=== PATIENT | male | born 1955 | race Caucasian/White ===

== ENCOUNTER 2018-09-06 21:23 | Inpatient (IN) | payer MEDICARE, BC ==
[~2018-09-06] VITALS: Ht 177.8 cm; Wt 65.8 kg
[2018-09-06] MEDS ORDERED: METH10TA2 PO (22:37)
[2018-09-06] MEDS ORDERED: IPRA0.2S48 IH (22:37)
[2018-09-06] MEDS ORDERED: DOCU50CA13 PO (22:37)
[2018-09-06] MEDS ORDERED: FINA5TAB3 PO (22:37)
[2018-09-06] MEDS ORDERED: FLUT1DIS29 IH (22:37)
[2018-09-06] MEDS ORDERED: DICL100G16 TP (22:37)
[2018-09-06] MEDS ORDERED: ALBU8HFA4 (22:37)
[2018-09-06] MEDS ORDERED: MULT1TAB73 PO (22:37)
[2018-09-06] MEDS ORDERED: ATOR80TA PO (22:37)
[2018-09-06] MEDS ORDERED: TAMS-3 PO (22:37)
[2018-09-06] MEDS ORDERED: AMIT50TA3 PO (22:37)
[2018-09-06] MEDS ORDERED: ASPI-605 PO (22:37)
[2018-09-06] MEDS ORDERED: ATEN50TA PO (22:37)
[2018-09-06] MEDS ORDERED: LANS30CA54 PO (22:37)
[2018-09-06] MEDS ORDERED: ZOLPIDEM 5 MG TABLET PO PRN (23:00)
[2018-09-06] MEDS ORDERED: ACETAMINOPHEN 325 MG TABLET PO PRN (23:00)
[2018-09-06] MEDS ORDERED: LORAZEPAM 0.5 MG TABLET PO PRN (23:00)
[2018-09-06] MEDS ORDERED: MAGNESIUM HYDROXIDE 30 ML LIQUID UDC PO PRN (23:00)
[2018-09-06] MEDS ORDERED: MAG HYDROX/AL HYDROX/SIMETH 30 ML LIQUID UDC PO PRN (23:00)
[2018-09-07 00:14] VITALS: BP 113/48
[2018-09-07] MEDS ORDERED: ACETAMINOPHEN 325 MG TABLET PO PRN ×2 (01:45→02:45)
[2018-09-07 07:30] VITALS: BP 110/49
[2018-09-07] MEDS ORDERED: Medication Not On Formulary EA (Multivitamins (Multivitamin) 1 EACH) PO SCH (09:00)
[2018-09-07] MEDS ORDERED: FLUTICASONE/SALMETEROL 500/50 EACH DISK.W.DEV IH SCH (09:00)
[2018-09-07] MEDS ORDERED: DOCUSATE SODIUM 50 MG PO PRN (09:00)
[2018-09-07] MEDS ORDERED: Medication Not On Formulary EA (Lansoprazole (Prevacid) 30 MG) PO SCH (09:00)
[2018-09-07] MEDS: FINASTERIDE 5 MG TABLET PO SCH (09:55)
[2018-09-07] MEDS: TAMSULOSIN HCL 0.4 MG CAP.SR.24H PO SCH ×2 (09:55→16:42)
[2018-09-07] MEDS: ASPIRIN EC 81 MG TABLET.DR PO SCH (09:55)
[2018-09-07] MEDS: ATENOLOL 50 MG TABLET PO SCH (12:01)
[2018-09-07] MEDS: METHADONE HCL 10 MG TABLET PO SCH ×2 (13:07→16:42)
[2018-09-07] MEDS: IPRATROPIUM BROMIDE 0.5 MG/2.5 ML NEBU IH SCH (15:30)
[2018-09-07 16:13] VITALS: BP 122/51
[2018-09-07 19:30] VITALS: BP 108/73
[2018-09-07] MEDS: DOCUSATE SODIUM 100 MG CAPSULE PO SCH (20:15)
[2018-09-07] MEDS: ATORVASTATIN 40 MG TABLET PO SCH (20:15)
[2018-09-07] MEDS: AMITRIPTYLINE HCL 50 MG TABLET PO SCH (20:15)
[2018-09-07] MEDS ORDERED: Medication Not On Formulary EA (Atorvastatin Calcium (Lipitor) 80 MG) PO SCH (21:00)
[2018-09-08] MEDS: PANTOPRAZOLE SODIUM 40 MG TABLET.DR PO SCH (06:09)
[2018-09-08 07:17] LABS: EOSINOPHILS # (AUTO) 0.2 K/uL (0.0-0.7); EOSINOPHILS % (AUTO) 3.4 % (0.0-7.0); HEMATOCRIT 35.3 % (36.7-47.1); LYMPHOCYTES # (AUTO) 0.7 K/uL (20.0-40.0); LYMPHOCYTES % (AUTO) 14.2 % (20.5-51.5); MEAN CORPUSCULAR HEMOGLOBIN 31.6 uug (23.8-33.4); MEAN CORPUSCULAR HGB CONC 34 g/dL (32.5-36.3); MEAN CORPUSCULAR VOLUME 92.5 fL (73.0-96.2); MONOCYTES # (AUTO) 0.4 K/uL (2.0-10.0); MONOCYTES % (AUTO) 8.8 % (0.0-11.0); NEUTROPHILS # (AUTO) 3.7 K/uL (1.8-8.9); NEUTROPHILS % (AUTO) 72.6 % (38.5-71.5); PLATELET COUNT (AUTO) 283 K/uL (152-348); RED BLOOD CELL COUNT(AUTO) 3.82 MIL/uL (4.06-5.63); WHITE BLOOD COUNT (AUTO) 5.1 K/uL (3.6-10.2)
[2018-09-08 07:30] VITALS: BP 116/78
[2018-09-08 07:36] LABS: CREATININE 0.8 mg/dL (0.6-1.3); POTASSIUM 4.2 mmol/L (3.5-5.1)
[2018-09-08 07:42] LABS: BILIRUBIN,TOTAL 0.5 mg/dL (0.2-1.0); MAGNESIUM 1.6 mg/dL (1.8-2.4); PHOSPHOROUS 3.4 mg/dL (2.5-4.9); TOTAL PROTEIN, SERUM 7.1 g/dL (6.4-8.2)
[2018-09-08 07:53] LABS: THYROID STIMULATING HORMONE 1.725 mIU/mL (0.358-3.740)
[2018-09-08] MEDS: IPRATROPIUM BROMIDE 0.5 MG/2.5 ML NEBU IH SCH ×4 (08:00→23:01)
[2018-09-08] MEDS: FINASTERIDE 5 MG TABLET PO SCH (08:29)
[2018-09-08] MEDS: ATENOLOL 50 MG TABLET PO SCH (08:29)
[2018-09-08] MEDS: DOCUSATE SODIUM 100 MG CAPSULE PO SCH ×2 (08:30→20:33)
[2018-09-08] MEDS: MULTIVITAMINS,THERAPEUTIC TABLET PO SCH (08:30)
[2018-09-08] MEDS: ESCITALOPRAM OXALATE 10 MG TABLET PO SCH (08:30)
[2018-09-08] MEDS: TAMSULOSIN HCL 0.4 MG CAP.SR.24H PO SCH ×2 (08:30→17:21)
[2018-09-08] MEDS: METHADONE HCL 10 MG TABLET PO SCH ×3 (08:30→17:21)
[2018-09-08] MEDS: ASPIRIN EC 81 MG TABLET.DR PO SCH (08:31)
[2018-09-08] MEDS: FLUTICASONE/VILANTEROL 1 EACH BLST.W.DEV INH SCH (08:32)
[2018-09-08] MEDS ORDERED: MAGNESIUM OXIDE 400 MG TABLET PO ONE ×2 (12:00→15:00)
[2018-09-08 12:50] LABS: *BILIRUBIN,URIN NEGATIVE (NEGATIVE); *BLOOD, URINE NEGATIVE (NEGATIVE); *CLARITY,URINE CLEAR (CLEAR); *COLOR,URINE DARK YELLOW (YELLOW); *KETONES,URINE NEGATIVE (NEGATIVE); *PROTEIN,URINE NEGATIVE (NEGATIVE); *UROBILINOGEN,URINE 0.2 E.U./dl (NORMAL); LEUKOCYTE ESTERASE ,URINE NEGATIVE (NEGATIVE); NITRITE, URINE NEGATIVE (NEGATIVE); PH,URINE 5.5 (5.0-8.0); UGLUCOSE NEGATIVE (NEGATIVE)
[2018-09-08] MEDS: MUPIROCIN 2% OINT 22 GM TUBE NS SCH (17:22)
[2018-09-08 17:36] VITALS: BP 113/60
[2018-09-08] MEDS: ATORVASTATIN 40 MG TABLET PO SCH (20:33)
[2018-09-08] MEDS: AMITRIPTYLINE HCL 50 MG TABLET PO SCH (20:34)
[2018-09-09] MEDS: PANTOPRAZOLE SODIUM 40 MG TABLET.DR PO SCH (06:15)
[2018-09-09] MEDS: IPRATROPIUM BROMIDE 0.5 MG/2.5 ML NEBU IH SCH ×3 (07:19→22:30)
[2018-09-09 07:30] VITALS: BP 119/50
[2018-09-09] MEDS: DOCUSATE SODIUM 100 MG CAPSULE PO SCH ×2 (08:16→22:05)
[2018-09-09] MEDS: ASPIRIN EC 81 MG TABLET.DR PO SCH (08:16)
[2018-09-09] MEDS: MULTIVITAMINS,THERAPEUTIC TABLET PO SCH (08:16)
[2018-09-09] MEDS: TAMSULOSIN HCL 0.4 MG CAP.SR.24H PO SCH ×2 (08:16→16:22)
[2018-09-09] MEDS: METHADONE HCL 10 MG TABLET PO SCH ×3 (08:17→16:22)
[2018-09-09] MEDS: FINASTERIDE 5 MG TABLET PO SCH (08:17)
[2018-09-09] MEDS: ESCITALOPRAM OXALATE 10 MG TABLET PO SCH (08:17)
[2018-09-09] MEDS: MUPIROCIN 2% OINT 22 GM TUBE NS SCH ×2 (08:18→22:05)
[2018-09-09] MEDS: ATENOLOL 50 MG TABLET PO SCH (08:18)
[2018-09-09] MEDS: FLUTICASONE/VILANTEROL 1 EACH BLST.W.DEV INH SCH (08:19)
[2018-09-09 16:00] VITALS: BP 107/70
[2018-09-09 20:46] VITALS: BP 129/71
[2018-09-09] MEDS: AMITRIPTYLINE HCL 50 MG TABLET PO SCH (22:05)
[2018-09-09] MEDS: ATORVASTATIN 40 MG TABLET PO SCH (22:05)
[2018-09-10] MEDS: IPRATROPIUM BROMIDE 0.5 MG/2.5 ML NEBU IH SCH ×3 (07:05→23:07)
[2018-09-10 07:30] VITALS: BP 134/77
[2018-09-10] MEDS: PANTOPRAZOLE SODIUM 40 MG TABLET.DR PO SCH (08:07)
[2018-09-10] MEDS: FLUTICASONE/VILANTEROL 1 EACH BLST.W.DEV INH SCH (08:08)
[2018-09-10] MEDS: MULTIVITAMINS,THERAPEUTIC TABLET PO SCH (08:08)
[2018-09-10] MEDS: FINASTERIDE 5 MG TABLET PO SCH (08:09)
[2018-09-10] MEDS: DOCUSATE SODIUM 100 MG CAPSULE PO SCH ×2 (08:09→20:57)
[2018-09-10] MEDS: ASPIRIN EC 81 MG TABLET.DR PO SCH (08:09)
[2018-09-10] MEDS: METHADONE HCL 10 MG TABLET PO SCH ×3 (08:09→16:53)
[2018-09-10] MEDS: ESCITALOPRAM OXALATE 10 MG TABLET PO SCH (08:09)
[2018-09-10] MEDS: TAMSULOSIN HCL 0.4 MG CAP.SR.24H PO SCH ×2 (08:09→16:53)
[2018-09-10] MEDS: MUPIROCIN 2% OINT 22 GM TUBE NS SCH ×2 (08:10→20:57)
[2018-09-10] MEDS: ATENOLOL 50 MG TABLET PO SCH (15:00)
[2018-09-10 16:00] VITALS: BP 122/62
[2018-09-10 20:51] VITALS: BP 124/67
[2018-09-10] MEDS: AMITRIPTYLINE HCL 50 MG TABLET PO SCH (20:57)
[2018-09-10] MEDS: ATORVASTATIN 40 MG TABLET PO SCH (20:58)
[2018-09-11] MEDS: IPRATROPIUM BROMIDE 0.5 MG/2.5 ML NEBU IH SCH ×3 (07:07→23:18)
[2018-09-11 07:30] VITALS: BP 129/53
[2018-09-11] MEDS: PANTOPRAZOLE SODIUM 40 MG TABLET.DR PO SCH (07:45)
[2018-09-11] MEDS: ASPIRIN EC 81 MG TABLET.DR PO SCH (08:19)
[2018-09-11] MEDS: FINASTERIDE 5 MG TABLET PO SCH (08:19)
[2018-09-11] MEDS: ESCITALOPRAM OXALATE 10 MG TABLET PO SCH (08:19)
[2018-09-11] MEDS: DOCUSATE SODIUM 100 MG CAPSULE PO SCH ×2 (08:19→20:29)
[2018-09-11] MEDS: MUPIROCIN 2% OINT 22 GM TUBE NS SCH ×2 (08:22→20:29)
[2018-09-11] MEDS: FLUTICASONE/VILANTEROL 1 EACH BLST.W.DEV INH SCH (08:22)
[2018-09-11] MEDS: METHADONE HCL 10 MG TABLET PO SCH ×3 (08:38→16:21)
[2018-09-11] MEDS: TAMSULOSIN HCL 0.4 MG CAP.SR.24H PO SCH ×2 (08:43→16:21)
[2018-09-11] MEDS: MULTIVITAMINS,THERAPEUTIC TABLET PO SCH (08:43)
[2018-09-11] MEDS: ATENOLOL 50 MG TABLET PO SCH (09:19)
[2018-09-11] MEDS: PSYLLIUM SEED PACKET PO SCH (12:12)
[2018-09-11 16:00] VITALS: BP 125/63
[2018-09-11 19:00] VITALS: BP 112/69
[2018-09-11] MEDS: ATORVASTATIN 40 MG TABLET PO SCH (20:29)
[2018-09-11] MEDS: AMITRIPTYLINE HCL 50 MG TABLET PO SCH (20:29)
[2018-09-12] MEDS: PANTOPRAZOLE SODIUM 40 MG TABLET.DR PO SCH (06:11)
[2018-09-12] MEDS: IPRATROPIUM BROMIDE 0.5 MG/2.5 ML NEBU IH SCH ×3 (07:02→22:50)
[2018-09-12 07:12] VITALS: BP 118/69
[2018-09-12] MEDS: DOCUSATE SODIUM 100 MG CAPSULE PO SCH ×2 (08:18→20:32)
[2018-09-12] MEDS: ASPIRIN EC 81 MG TABLET.DR PO SCH (08:19)
[2018-09-12] MEDS: FINASTERIDE 5 MG TABLET PO SCH (08:19)
[2018-09-12] MEDS: MULTIVITAMINS,THERAPEUTIC TABLET PO SCH (08:19)
[2018-09-12] MEDS: TAMSULOSIN HCL 0.4 MG CAP.SR.24H PO SCH ×2 (08:19→16:51)
[2018-09-12] MEDS: ESCITALOPRAM OXALATE 10 MG TABLET PO SCH (08:19)
[2018-09-12] MEDS: ATENOLOL 50 MG TABLET PO SCH (08:20)
[2018-09-12] MEDS: METHADONE HCL 10 MG TABLET PO SCH ×3 (08:20→16:51)
[2018-09-12] MEDS: MUPIROCIN 2% OINT 22 GM TUBE NS SCH ×2 (08:21→20:32)
[2018-09-12] MEDS: FLUTICASONE/VILANTEROL 1 EACH BLST.W.DEV INH SCH (08:21)
[2018-09-12] MEDS: PSYLLIUM SEED PACKET PO SCH (08:22)
[2018-09-12 15:06] VITALS: BP 110/45
[2018-09-12 20:00] VITALS: BP 131/70
[2018-09-12] MEDS: AMITRIPTYLINE HCL 50 MG TABLET PO SCH (20:32)
[2018-09-12] MEDS: ATORVASTATIN 40 MG TABLET PO SCH (20:32)
[2018-09-13] MEDS: PANTOPRAZOLE SODIUM 40 MG TABLET.DR PO SCH (06:03)
[2018-09-13 07:31] VITALS: BP 133/68
[2018-09-13] MEDS: IPRATROPIUM BROMIDE 0.5 MG/2.5 ML NEBU IH SCH ×3 (07:52→22:47)
[2018-09-13] MEDS: ASPIRIN EC 81 MG TABLET.DR PO SCH (08:32)
[2018-09-13] MEDS: ESCITALOPRAM OXALATE 10 MG TABLET PO SCH (08:32)
[2018-09-13] MEDS: MULTIVITAMINS,THERAPEUTIC TABLET PO SCH (08:32)
[2018-09-13] MEDS: DOCUSATE SODIUM 100 MG CAPSULE PO SCH ×2 (08:32→20:20)
[2018-09-13] MEDS: FLUTICASONE/VILANTEROL 1 EACH BLST.W.DEV INH SCH (08:32)
[2018-09-13] MEDS: MUPIROCIN 2% OINT 22 GM TUBE NS SCH ×2 (08:32→20:23)
[2018-09-13] MEDS: FINASTERIDE 5 MG TABLET PO SCH (08:32)
[2018-09-13] MEDS: METHADONE HCL 10 MG TABLET PO SCH ×3 (08:33→17:23)
[2018-09-13] MEDS: TAMSULOSIN HCL 0.4 MG CAP.SR.24H PO SCH ×2 (08:33→17:23)
[2018-09-13] MEDS: ATENOLOL 50 MG TABLET PO SCH (08:33)
[2018-09-13] MEDS: PSYLLIUM SEED PACKET PO SCH (08:35)
[2018-09-13 12:12] VITALS: BP 121/64
[2018-09-13 15:19] VITALS: BP 139/73
[2018-09-13] MEDS: ATORVASTATIN 40 MG TABLET PO SCH (20:20)
[2018-09-13] MEDS: AMITRIPTYLINE HCL 50 MG TABLET PO SCH (20:20)
[2018-09-13 20:27] VITALS: BP 127/60
[2018-09-14] MEDS: PANTOPRAZOLE SODIUM 40 MG TABLET.DR PO SCH (06:02)
[2018-09-14 06:23] LABS: BASOPHILS % (AUTO) 0.8 % (0.0-2.0); EOSINOPHILS # (AUTO) 0.1 K/uL (0.0-0.7); EOSINOPHILS % (AUTO) 2.5 % (0.0-7.0); HEMATOCRIT 33.8 % (36.7-47.1); HEMOGLOBIN 11.5 g/dL (12.5-16.3); LYMPHOCYTES # (AUTO) 0.9 K/uL (20.0-40.0); LYMPHOCYTES % (AUTO) 15.6 % (20.5-51.5); MEAN CORPUSCULAR HEMOGLOBIN 31.5 uug (23.8-33.4); MEAN CORPUSCULAR HGB CONC 34 g/dL (32.5-36.3); MEAN CORPUSCULAR VOLUME 92.8 fL (73.0-96.2); MONOCYTES # (AUTO) 0.5 K/uL (2.0-10.0); MONOCYTES % (AUTO) 9.3 % (0.0-11.0); NEUTROPHILS # (AUTO) 3.9 K/uL (1.8-8.9); NEUTROPHILS % (AUTO) 71.8 % (38.5-71.5); PLATELET COUNT (AUTO) 209 K/uL (152-348); RED BLOOD CELL COUNT(AUTO) 3.64 MIL/uL (4.06-5.63); WHITE BLOOD COUNT (AUTO) 5.5 K/uL (3.6-10.2)
[2018-09-14 07:01] LABS: BILIRUBIN,TOTAL 0.4 mg/dL (0.2-1.0); CREATININE 0.7 mg/dL (0.6-1.3); MAGNESIUM 1.6 mg/dL (1.8-2.4); PHOSPHOROUS 3.3 mg/dL (2.5-4.9); POTASSIUM 3.9 mmol/L (3.5-5.1); TOTAL PROTEIN, SERUM 6.4 g/dL (6.4-8.2)
[2018-09-14] MEDS: IPRATROPIUM BROMIDE 0.5 MG/2.5 ML NEBU IH SCH ×2 (07:16→15:30)
[2018-09-14] MEDS: FLUTICASONE/VILANTEROL 1 EACH BLST.W.DEV INH SCH (09:17)
[2018-09-14] MEDS: PSYLLIUM SEED PACKET PO SCH (09:19)
[2018-09-14] MEDS: MUPIROCIN 2% OINT 22 GM TUBE NS SCH (09:19)
[2018-09-14] MEDS: TAMSULOSIN HCL 0.4 MG CAP.SR.24H PO SCH (09:19)
[2018-09-14] MEDS: FINASTERIDE 5 MG TABLET PO SCH (09:20)
[2018-09-14] MEDS: METHADONE HCL 10 MG TABLET PO SCH ×2 (09:20→13:40)
[2018-09-14] MEDS: ATENOLOL 50 MG TABLET PO SCH (09:21)
[2018-09-14] MEDS: DOCUSATE SODIUM 100 MG CAPSULE PO SCH (09:21)
[2018-09-14] MEDS: ASPIRIN EC 81 MG TABLET.DR PO SCH (09:21)
[2018-09-14] MEDS: ESCITALOPRAM OXALATE 10 MG TABLET PO SCH (09:21)
[2018-09-14] MEDS: MULTIVITAMINS,THERAPEUTIC TABLET PO SCH (09:21)
[2018-09-14 11:05] VITALS: BP 133/79
[2018-09-14] MEDS ORDERED: MAGNESIUM OXIDE 400 MG TABLET PO ONE (11:15)
[2018-09-14 15:19] VITALS: BP 130/68
== END 2018-09-14 16:10 | disposition home or self-care (01) | DRG 885 ==
LOC: ER 21:23 → GPS 22:42 → MED 09-11 16:39 → GPSOV 09-11 17:15
PROVIDERS: ADMIT Psychiatry & Neurology Psychiatry; ATTEND Registered Nurse
DX: F32.2 Major depressive disorder, single episode, severe without psychotic features (principal); F11.20 Opioid dependence, uncomplicated; E44.0 Moderate protein-calorie malnutrition; T40.2X2D Poisoning by other opioids, intentional self-harm, subsequent encounter; K21.9 Gastro-esophageal reflux disease without esophagitis; E78.5 Hyperlipidemia, unspecified; N40.0 Benign prostatic hyperplasia without lower urinary tract symptoms; R62.7 Adult failure to thrive; M48.00 Spinal stenosis, site unspecified; I69.80 Unspecified sequelae of other cerebrovascular disease; J44.9 Chronic obstructive pulmonary disease, unspecified; F17.200 Nicotine dependence, unspecified, uncomplicated; G89.29 Other chronic pain; E83.42 Hypomagnesemia; Z22.322 Carrier or suspected carrier of Methicillin resistant Staphylococcus aureus; Z68.20 Body mass index [BMI] 20.0-20.9, adult; D64.9 Anemia, unspecified; Z92.3 Personal history of irradiation; Z92.21 Personal history of antineoplastic chemotherapy; Z85.118 Personal history of other malignant neoplasm of bronchus and lung; I10 Essential (primary) hypertension; I49.9 Cardiac arrhythmia, unspecified; R26.2 Difficulty in walking, not elsewhere classified; M19.90 Unspecified osteoarthritis, unspecified site; R79.89 Other specified abnormal findings of blood chemistry
CPT/HCPCS: 36415; 70030-TC; 83735; 84100; 84443; 85025; 93005; 94640; 97112; 97116; 97530; A4663; J3590